=== PATIENT | male | born 1975 | race Caucasian/White ===

== ENCOUNTER 2021-02-26 15:43 | Emergency (ER) | payer SELFPAY ==
[2021-02-26 15:46] VITALS: BP 126/100; PULSE 81; RESP 14; TEMP 36.4; O2SAT 99
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
[2021-02-26] MEDS: SODIUM CHLORIDE 0.9% IV 2,000 ML 999 ML IV CONT (16:18)
[2021-02-26] MEDS: ONDANSETRON INJ 4 MG/2 ML VIAL IV PUSH (16:18)
[2021-02-26] MEDS: FAMOTIDINE 20 MG/2 ML VIAL IV PUSH (16:22)
[2021-02-26 16:29] LABS: Basophils Percent Auto 0.2 % (0.2-1.2); Eosinophils Percent Auto 0.1 % (0-4.4); Hematocrit 47.7 % (42.0-52.0); Hemoglobin 16.9 g/dL (14.0-18.0); Immature Granulocyte Absolute 0.03 K/mm3 (0.00-0.031); Immature Granulocyte Percent A 0.3 % (0-0.5); Lymphocytes Absolute Auto 0.93 K/mm3 (0.9-3.2); Lymphocytes Percent Auto 10.8 % (18.3-44.2); Mean Corpuscular HGB Conc 35.4 g/dl (32-36); Mean Corpuscular Hemoglobin 29.2 pg (26-34); Mean Corpuscular Volume 82.4 fl (80-100); Mean Platelet Volume 10.2 fl (7.4-10.4); Monocytes Absolute Auto 0.6 K/mm3 (0.1-0.6); Monocytes Percent Auto 7.1 % (2.6-8.5); Neutrophils Percent Auto 81.5 % (45.5-73.1); Platelet Count Result 182 k/mm3 (150-375); Red Blood Count 5.79 M/mm3 (4.6-6.20); Red Cell Distribution Width 12.9 % (11.5-14.5); White Blood Count 8.6 K/mm3 (4.5-10.0)
[2021-02-26 16:48] LABS: Alanine Aminotransferase 18 U/L (4-50); Albumin Level 4.6 g/dL (3.5-5.1); Alkaline Phosphatase 79 U/L (38-126); Anion Gap 13 mmol/L (8-16); Aspartate Amino Transferase 25 U/L (17-59); Bilirubin,Total 0.9 mg/dL (0.2-1.3); Blood Urea Nitrogen 18 mg/dL (9-20); Calcium 10.6 mg/dL (8.4-10.2); Carbon Dioxide 24 mmol/L (22-30); Chloride 94 mmol/L (98-107); Estimated CRCL calculation 95 ml/min; Estimated Glomerular Filt Rate > 60; Glucose 311 mg/dL (75-110); Lipase 91 U/L (23-300); Magnesium 1.4 mg/dL (1.6-2.3); Phosphorus 3.8 mg/dL (2.5-4.5); Potassium 4.3 mmol/L (3.4-5.0); Sodium 131 mmol/L (137-145)
[2021-02-26 16:52] LABS: Beta-Hydroxybutyrate/Acetoacetate 3.44 mmol/L (0.02-0.27)
[2021-02-26] MEDS: METOCLOPRAMIDE HCL INJ 10 MG/2 ML VIAL IV PUSH (17:20)
[2021-02-26] MEDS: SODIUM CHLORIDE 0.9% IV 1,000 ML 999 ML (17:52)
[2021-02-26 18:13] LABS: Add Urine Microscopic? YES; Appearance Urine Clear (Clear); Bilirubin Urine Negative (Negative); Blood Urine Negative (Negative); Color Urine Yellow (Yellow); Glucose Urine UA 3+ mg/dL (Negative); Ketones Urine 2+ mg/dL (Negative); Leukocyte Esterase Ur Negative LEU/UL (Negative); Nitrate Urine Negative (Negative); Protein Urine 1+ mg/dL (Negative); Specific Grav Ur 1.024 (1.001-1.035); Squamous Epithelial Cell Urine Rare /hpf (Few); Urobilinogen Urine Negative mg/dL (<2.0); WBC Urine 0-3 /hpf
[2021-02-26 18:48] LABS: Glucose Point of Care 254 mg/dl (65-105)
[2021-02-26 19:28] VITALS: BP 128/78; PULSE 85; RESP 18; O2SAT 100
== END 2021-02-26 19:29 | disposition home or self-care (01) ==
PROVIDERS: Emergency Provider Emergency Medicine; PCP Emergency Medicine
DX: K52.9 Noninfective gastroenteritis and colitis, unspecified (principal); E86.0 Dehydration; E11.9 Type 2 diabetes mellitus without complications; Z79.84 Long term (current) use of oral hypoglycemic drugs
CPT/HCPCS: 36415; 80053; 81001; 82010; 82948; 83690; 83735; 84100; 85025; 96361; 96374; 96375; 99284; J2405; J2765; J7030

== ENCOUNTER 2022-01-01 12:04 | Observation (INO) | payer BC, SELFPAY ==
[2022-01-01] VITALS (40 sets, daily range): BP systolic 114–160; BP diastolic 62–98; PULSE 48–90; RESP 12–30; TEMP 35.9–36.6; O2SAT 96–100
--- NOTE | ~2022-01-01 | NM_ITS ---
EXAM: NM gastric emptying study DATE: 01/02/2022 13:06 INDICATION: Dyspepsia. Nausea. Regurgitation. TECHNIQUE: A gastric emptying study was performed using the methodology of Bonita FULTON, et al. J Nucl Med 2007; 48:568-572. The patient was given a meal consisting of 2 scrambled eggs labeled with 0.972 mCi Tc-99m sulfur colloid, 2 slices of toast, two packages of jam, and approximately 120 mL of water . Simultaneous anterior and posterior 1-min images of the abdomen was obtained immediately following ingestion of the medial. The patient vomited 10 minutes later and subsequent imaging was unable to be obtained in the study was terminated. FINDINGS/IMPRESSION: Nondiagnostic study for gastric emptying due to patient vomiting with loss of the radiolabeled meal o ccurring 10 minutes following the beginning of the study. Reviewed, dictated and finalized at location A.
--- NOTE | ~2022-01-01 | XR_ITS ---
EXAMINATION: XR abdomen/kub 1V EXAM DATE: 01/01/2022 23:01 INDICATION: Abdominal pain, vomiting, constipation. TECHNIQUE: Frontal projection(s) of the abdomen for interpretation. Correlation is made to CT from . FINDINGS: Evidence of mild splenomegaly. There is expected amount of colonic stool and gas. No sma ll bowel dilation, nonobstructive bowel gas pattern. Phleboliths. The bones are unremarkable. IMPRESSION: Unremarkable abdomen x-ray exam. Reviewed, dictated and finalized at location G.
[2022-01-01 12:20] LABS: Glucose Point of Care 325 mg/dl (65-105)
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
--- NOTE | 2022-01-01 12:50 | PC.NURSE ---
Verified insulin orders with MARIA D Rodriguez. Blood sugar only 325. Per orders, given IVP insulin for BS >450. Per MARIA D Rodriguez given 8units Insulin IVP at this time.
[2022-01-01 12:51] LABS: Basophils Percent Auto 0.2 % (0.2-1.2); Eosinophils Percent Auto 0.1 % (0-4.4); Hematocrit 42.5 % (42.0-52.0); Hemoglobin 15.1 g/dL (14.0-18.0); Immature Granulocyte Absolute 0.04 K/mm3 (0.00-0.031); Immature Granulocyte Percent A 0.5 % (0-0.5); Lymphocytes Absolute Auto 0.88 K/mm3 (0.9-3.2); Lymphocytes Percent Auto 10.1 % (18.3-44.2); Mean Corpuscular HGB Conc 35.5 g/dl (32-36); Mean Corpuscular Hemoglobin 29.7 pg (26-34); Mean Corpuscular Volume 83.7 fl (80-100); Mean Platelet Volume 10.6 fl (7.4-10.4); Monocytes Absolute Auto 0.4 K/mm3 (0.1-0.6); Monocytes Percent Auto 4.2 % (2.6-8.5); Neutrophils Absolute Auto 7.4 K/mm3 (1.3-6.7); Neutrophils Percent Auto 84.9 % (45.5-73.1); Platelet Count Result 176 k/mm3 (150-375); Red Blood Count 5.08 M/mm3 (4.6-6.20); Red Cell Distribution Width 12.9 % (11.5-14.5); White Blood Count 8.7 K/mm3 (4.5-10.0)
[2022-01-01] MEDS: ONDANSETRON INJ 4 MG/2 ML VIAL IV PUSH ×2 (12:55→18:31)
[2022-01-01] MEDS: INSULIN HUMAN REGULAR (*BKC) 100 UNITS/ML 8 UNITS IV PUSH (12:55)
[2022-01-01] MEDS: SODIUM CHLORIDE 0.9% IV 1,000 ML 999 ML IV CONT ×3 (12:55→16:11)
[2022-01-01 13:00] LABS: Alanine Aminotransferase 31 U/L (4-50); Albumin Level 4.4 g/dL (3.5-5.1); Alkaline Phosphatase 72 U/L (38-126); Anion Gap 8 mmol/L (8-16); Aspartate Amino Transferase 22 U/L (17-59); Blood Urea Nitrogen 14 mg/dL (9-20); Calcium 9.6 mg/dL (8.4-10.2); Carbon Dioxide 26 mmol/L (22-30); Chloride 100 mmol/L (98-107); Estimated CRCL calculation 105 ml/min; Estimated Glomerular Filt Rate > 60; Glucose 323 mg/dL (65-110); Lipase 128 U/L (23-300); Potassium 3.7 mmol/L (3.4-5.0); Sodium 134 mmol/L (137-145)
[2022-01-01 13:15] LABS: Magnesium 1.5 mg/dL (1.6-2.3); Phosphorus 3.4 mg/dL (2.5-4.5)
[2022-01-01 13:22] LABS: Beta-Hydroxybutyrate/Acetoacetate 1.27 mmol/L (0.02-0.27)
[2022-01-01 13:37] LABS: Device ROOM AIR; Fractional Inspired Oxygen 21 %; HCO3 VBG 25.6 mEq/l (24.0-30.0); PCO2 VBG 43.1 mmHg (42.0-48.0); PO2 VBG 29.5 mmHg (35.0-45.0); pH VBG 7.392 (7.300-7.400)
[2022-01-01 13:42] LABS: Glucose Point of Care 224 mg/dl (65-105)
--- NOTE | 2022-01-01 14:39 | ECG_ITS ---
Measurements Intervals [place] Rate: 58 P: 69 MD: 130 QRS: 55 QRSD: 88 T: 57 QT: 390 QTc: 384 Interpretive Statements SINUS BRADYCARDIA OTHERWISE NORMAL ECG NO PREVIOUS ECG AVAILABLE FOR COMPARISON Electronically Signed On 01-01-2022 17:54:48 CDT by Bill Reina M.D.
[2022-01-01] MEDS: MAGNESIUM SULF 2 GM/WATER 50ML 2 GM/50 ML BAG IVPB (14:52)
[2022-01-01 16:10] LABS: Troponin I < 0.012 ng/mL (0.000-0.034)
[2022-01-01 16:43] LABS: Glucose Point of Care 256 mg/dl (65-105)
[2022-01-01 16:44] LABS: Add Urine Microscopic? YES; Appearance Urine Clear (Clear); Bacteria Urine Trace /hpf; Bilirubin Urine Negative (Negative); Blood Urine Negative (Negative); Color Urine Yellow (Yellow); Glucose Urine UA 3+ mg/dL (Negative); Ketones Urine 2+ mg/dL (Negative); Leukocyte Esterase Ur Negative LEU/UL (Negative); Mucus Urine Rare /lpf; Nitrate Urine Negative (Negative); Protein Urine Negative (Negative); RBC Urine 0-2 /hpf (0-2); Urobilinogen Urine Negative mg/dL (<2.0); WBC Urine 0-3 /hpf
[2022-01-01 16:50] LABS: Specific Grav Ur 1.035 (1.001-1.035)
--- NOTE | 2022-01-01 19:00 | PM.IMHP ---
H&P: HPI History of Present Illness Date/Time: 01/01/22 19:00 Chief Complaint: High glucose, nausea, vomiting. Narrative: This is a pleasant 46-year-old male with type 2 diabetes mellitus who presented to the emergency department for evaluation of high glucose, nausea, and vomiting. He was diagnosed with diabetes 4 to 5 years ago and he has lost about 100 pounds since that time. He has done well with metformin only however more recently his glucose has started to climb in the last few weeks. In addition to the hyperglycemia, he has been having sweats, most significant at night, frequent nausea, and vomiting. 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 He was able to be discharged home however he is just not felt well since that time. Last Thursday he followed up with his primary care physician, Dr. Otto, and he was started on 10 units glargine. Despite the addition of insulin, his glucose has continued to be in the 300s or more and he was told to increase his insulin to 20 units daily just today. The patient actually took 30 units today however his glucose continues to be in the upper 300s and he came in for evaluation. Once again he was aggressively hydrated and treated with IV insulin and his glucose has improved to 224 on last check. Unfortunately he continues to have pretty significant nausea and vomiting. With further questioning he endorses low sternum/epigastric burning discomfort that has been ongoing for quite some time and he has also noticed that his fluid seems to sit in his stomach causing him to regurgitate frequently. He has not had any diarrhea and in fact his bowels have not moved for several days. He denies documented fever, cold and flu symptoms (he believes he had COVID at the beginning of October though it was not confirmed), chest pain, pleuritic pain, shortness of breath, hematemesis, melena, hematochezia, and dysuria. No lymphadenopathy or history of malignancy. Review of Systems Review of Systems: Twelve systems were reviewed. He has occasional mild tingling in his toes but nothing significant. No retinopathy or nephropathy. He has occasional blurry vision with hyperglycemia. No significant polydipsia or polyuria. No sinus congestion, rhinorrhea, otalgia, or odynophagia. He denies rash in lesion. Except as documented, all other systems were reviewed and are negative. [facility] Past Medical History Medical History (Updated 01/01/22 @ 22:56 by Angeli Kent PA-C) Hypercholesterolemia Type 2 diabetes mellitus Surgical History Surgical History (Updated 01/01/22 @ 22:49 by Angeli Kent PA-C) No history of previous surgery Family History Family History Father Diabetes mellitus Congestive heart failure Mother Rheumatoid arthritis Thyroid disease Sibling Diabetes mellitus Social History Social History (Updated 01/01/22 @ 22:51 by Angeli Kent PA-C) Social History: Surrogate decision maker: Khloe Maxwell, sister. Code status: Full code. Smoking status: Former smoker Additional smoking assessment comments: The patient smoked remotely as a teen, quit in his 20s. Alcohol intake: never Alcohol use details: Very rare alcohol use, socially and in moderation. Substance use: never Additional living arrangements comments: The patient lives in [place]. 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 Spiritual care concerns: No Meds Home Medications and Allergies Home Medications Medication Instructions Recorded Confirmed Type insulin glargine-yfgn 10 unit SUBCUT DAILY 01/01/22 01/01/22 History [Semglee(insulin glarg-yfgn)Pen] lisinopril 2.5 mg PO DAILY 01/01/22 01/01/22 History metoclopramide HCl [Reglan] 10
[2022-01-01 19:13] LABS: Anion Gap 9 mmol/L (8-16); Blood Urea Nitrogen 14 mg/dL (9-20); Calcium 8.4 mg/dL (8.4-10.2); Carbon Dioxide 22 mmol/L (22-30); Chloride 105 mmol/L (98-107); Estimated CRCL calculation 136 ml/min; Estimated Glomerular Filt Rate > 60; Glucose 252 mg/dL (65-110); Potassium 3.8 mmol/L (3.4-5.0); Sodium 136 mmol/L (137-145)
[2022-01-01 19:49] LABS: SARS-CoV-2 RNA PCR Negative
[2022-01-01 22:15] LABS: Glucose Point of Care 224 mg/dl (65-105)
--- NOTE | 2022-01-01 22:49 | ADMGEN ---
This patient, Manuel Yun, was admitted to 3 [facility] Surg Room 320-01. Patient/family oriented to hospital policies and general routines including ID bracelet, bed and alarms, visiting hours, pain management, procedures, bathroom and other care routines, personal items, smoking policy, room service/diet, and visiting hours. Information on how to activate the Rapid Response Team has been discussed. Patient/Family are encouraged to report perceived risks to care and to ask questions if they do not understand what they are told or what they should do.
[2022-01-02] VITALS (10 sets, daily range): BP systolic 113–155; BP diastolic 63–76; PULSE 51–72; RESP 16–20; TEMP 36.2–36.7; O2SAT 98–100
[2022-01-02] MEDS: SODIUM CHLORIDE 0.9% IV 1,000 ML 100 ML IV CONT ×2 (00:30→13:25)
[2022-01-02 06:22] LABS: Hematocrit 36.6 % (42.0-52.0); Hemoglobin 12.7 g/dL (14.0-18.0); Mean Corpuscular HGB Conc 34.7 g/dl (32-36); Mean Corpuscular Hemoglobin 29.6 pg (26-34); Mean Corpuscular Volume 85.3 fl (80-100); Mean Platelet Volume 10.2 fl (7.4-10.4); Platelet Count Result 148 k/mm3 (150-375); Red Blood Count 4.29 M/mm3 (4.6-6.20); Red Cell Distribution Width 13.1 % (11.5-14.5); White Blood Count 7.9 K/mm3 (4.5-10.0)
[2022-01-02 06:35] LABS: Anion Gap 5 mmol/L (8-16); Blood Urea Nitrogen 13 mg/dL (9-20); Calcium 8.5 mg/dL (8.4-10.2); Carbon Dioxide 25 mmol/L (22-30); Chloride 106 mmol/L (98-107); Estimated CRCL calculation 119 ml/min; Estimated Glomerular Filt Rate > 60; Glucose 153 mg/dL (65-110); Lipase 53 U/L (23-300); Magnesium 1.7 mg/dL (1.6-2.3); Potassium 3.3 mmol/L (3.4-5.0); Sodium 136 mmol/L (137-145)
[2022-01-02 07:09] LABS: Hemoglobin A1C 9.3 % (<5.7)
[2022-01-02 07:41] LABS: Glucose Point of Care 175 mg/dl (65-105)
[2022-01-02] MEDS: METOCLOPRAMIDE HCL INJ 10 MG/2 ML VIAL IV PUSH ×3 (08:20→23:09)
[2022-01-02] MEDS: FAMOTIDINE 20 MG/2 ML VIAL IV PUSH ×2 (09:01→21:26)
[2022-01-02] MEDS: MAGNESIUM SULF 1 GM/D5W 100 ML 1 GM/100 ML BAG IVPB (10:00)
--- NOTE | 2022-01-02 11:28 | PC.NURSE ---
patient to nuc med per w/c
--- NOTE | 2022-01-02 13:13 | WPDGICN ---
Assessment and Plan Assessment and plan (1) Intractable nausea and vomiting: Code(s): R11.2 - Nausea with vomiting, unspecified Status: Acute Assessment and Plan: probably this could be from uncontrolled DM, dysmotility and also marijuana use (history suggestive of cyclic vomiting but lately with persistent symptoms) therefore will proceed with EGD tomorrow to assess if pud, esophagitis, h pylori, etc he could not complete gastric emptying study that was ordered by primary team, this can be done as outpatient when nausea is under control. he also will need to stop using marijuana as this can be a contributing factor (2) Type 2 diabetes mellitus with hyperglycemia: Code(s): E11.65 - Type 2 diabetes mellitus with hyperglycemia Status: Acute Assessment and Plan: by primary team (3) Dyspepsia: Code(s): R10.13 - Epigastric pain Status: Acute Assessment and Plan: on famotidine for now egd tomorrow (4) Marijuana smoker: Code(s): F12.90 - Cannabis use, unspecified, uncomplicated Status: Acute GI Consult Note Consult date/time: 01/02/22 13:13 Reason for consult: nausea, vomiting, uncontrolled DM HPI: Manuel Yun is a 46 year old male with uncontrolled DM for almost 5 years, intermittent nausea for last several months that initially will come in cycles but last few weeks persistent nausea and more vomiting. He used to live in [place], [place] and he was not good at taking his medications because lack of insurance, finally moved up here and just recently started on insulin and other medications after he got insurance. He says that has been admitted at least two times for DKA last year. Also smokes marijuana for years. He says that whenever gets sick at home will take hot showers. He is here with intractable nausea and vomiting again. He has not had gastric emptying study or EGD. Hb a1c 9, glucose 320, liver enzymes and lipase normal. Review of Systems Constitutional: Constitutional: Denies chills Eyes: Eyes: Denies blurry vision ENT: Reports Normal hearing present Cardiovascular: Cardiovascular: Denies chest pain Respiratory: Respiratory: Denies cough Gastrointestinal: Gastrointestinal: Reports nausea and Reports vomiting Genitourinary: Genitourinary: Denies dysuria Musculoskeletal: Musculoskeletal: Denies neck pain Integumentary/Breasts: Skin/Breast: Denies dry skin Neurologic: Denies headache(s) Psychiatric: Psychiatric: Denies behavioral changes PMF Past Medical History Medical History (Updated 01/02/22 @ 13:19 by Bill Campos MD) Hypercholesterolemia Marijuana smoker Type 2 diabetes mellitus Surgical History Surgical History (Updated 01/01/22 @ 22:49 by Angeli Kent PA-C) No history of previous surgery Family History Family History Father Diabetes mellitus Congestive heart failure Mother Rheumatoid arthritis Thyroid disease Sibling Diabetes mellitus Social History Social History (Updated 01/01/22 @ 22:51 by Angeli Kent PA-C) Social History: Surrogate decision maker: Khloe Maxwell, sister. Code status: Full code. Smoking status: Former smoker Additional smoking assessment comments: The patient smoked remotely as a teen, quit in his 20s. Alcohol intake: never Alcohol use details: Very rare alcohol use, socially and in moderation. Substance use: never Additional living arrangements comments: The patient lives in [place]. 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 Spiritual care concerns: No Meds Home Medications and Allergies Home Medications Medication Instructions Recorded Confirmed Type insulin glargine-yfgn 10 unit SUBCUT DAILY 01/01/22 01/01/22 History [Semglee(insulin glarg-yfgn)Pen] lisinopril 2.5 mg PO DAILY 01/01/22 01/01/22 History
[2022-01-02] MEDS: INSULIN ASPART (*BKC) 100 UNITS/ML SUB-Q (13:26)
[2022-01-02 13:33] LABS: Glucose Point of Care 238 mg/dl (65-105)
[2022-01-02] MEDS: KCL 20 MEQ/SW 100 ML 100 ML 50 MEQ IVPB (15:02)
--- NOTE | 2022-01-02 15:57 | PM.IMPN ---
Progress Note: A&P Assessment and Plan (1) Type 2 diabetes mellitus with hyperglycemia: Code(s): E11.65 - Type 2 diabetes mellitus with hyperglycemia Status: Acute Assessment and Plan: A1c is 9.3 Blood sugars reviewed and have been elevated, ranging from 175-240 No evidence of DKA. Anion gap is within normal He recently had his long-acting insulin increased per his PCP Continue home Lantus 20 units daily Continue Accu-Cheks, moderate dose sliding scale insulin, and hypoglycemic protocol Consult to dietitian. Appreciate recommendations (2) Intractable nausea and vomiting: Code(s): R11.2 - Nausea with vomiting, unspecified Status: Acute Assessment and Plan: Persistent nausea and vomiting, unable to tolerate solid foods Clinical picture seems consistent with gastroparesis secondary to diabetes Differential diagnosis includes click vomiting syndrome secondary to marijuana use Unable to tolerate gastric emptying study today Proceed with EGD tomorrow Appreciate gastroenterology consultation Reduced back to clear liquid diet Continue with gentle IV fluids until tolerating p.o. intake (3) Dyspepsia: Code(s): R10.13 - Epigastric pain Status: Acute Assessment and Plan: Asymptomatic at this time Continue Pepcid b.i.d. Appreciate GI consult Plan for EGD tomorrow (4) Electrolyte abnormality: Code(s): E87.8 - Other disorders of electrolyte and fluid balance, not elsewhere classified Status: Acute Assessment and Plan: Potassium 3.3 today. Administer 20 mEq IV KCl Mag 1.7. Give 1 g IV mag sulfate Likely due to decreased PO intake. Monitor BMP and mag Subjective Date/time seen: 01/02/22 15:57 Interval history: Date of admission: 01/02/2022 Manuel Yun is a 46-year-old male with a history of type 2 diabetes mellitus, recently requiring hospitalization for DKA 1 month prior, as well as hyperlipidemia and chronic marijuana use who is seen in follow-up for nausea and vomiting. The patient states he is feeling rather poorly still. He has diffuse abdominal aching. He attempted to have gastric emptying study today but did not tolerate this and had nausea and vomiting, therefore this test was not able to be completed. The patient had eggs for breakfast this morning and he reports he threw up aches this afternoon mixed with stomach acid. He has occasional acid reflux symptoms but at this time denies any issues. He denies fevers, chills, dizziness, lightheadedness, weakness, shortness of breath, cough, chest pain. The patient informs me that he was hospitalized in [place] 1 month ago for DKA. He states that he has been coming to this ER many times and has never been diagnosed and therefore he is disappointed that he had to be out of state to receive this diagnosis. He feels that he was admitted this time because he now has insurance and the past has not been admitted due to lack of insurance. He also asked about dietary recommendations. He informs me that he has lost about 130 lbs over the past 1 year by following a ketogenic diet. Review of Systems Review of Systems: All systems reviewed & are unremarkable except as noted in HPI and below Exam Narrative: General: Well-nourished, well-appearing 46 year-old male, sitting up in bed, comfortable, NARD Neuro: awake, alert and oriented x4, speech clear, no focal neuro deficits noted HEENMT: normocephalic, atraumatic, EOMI, sclerae anicteric, moist oral mucosa Respiratory: clear to auscultation bilaterally, nonlabored breathing Cardio: regular rate, regular rhythm with S1-S2 Abdomen: nondistended, normoactive bowel sounds, soft, nontender to palpation Extremities: no edema, erythema, or tenderness to palpation, DP pulses 2+ bilaterally Skin: no rashes or lesions, warm and dry Psych: appropriate mood and affect, judgment and insight intact Objective Data Vital Signs Vital
[2022-01-02 16:20] LABS: Glucose Point of Care 178 mg/dl (65-105)
[2022-01-02 23:31] LABS: Glucose Point of Care 175 mg/dl (65-105)
[2022-01-03] VITALS (8 sets, daily range): BP systolic 131–176; BP diastolic 73–89; PULSE 53–94; RESP 16–25; TEMP 36.3–36.9; O2SAT 93–100
--- NOTE | 2022-01-03 00:31 | PC.NURSE ---
01/03/22 0031 pt spends most of the night in the restroom. iv fluids not infusing adequately due to pt being in restroom. pt c/o pain from having emesis but still have not given pain med due to pt in the restroom at this time. asked pt if he was okay pt resp pt aonded saying i'll be out in a minute .pt aware he is npo for procedure in the am.
[2022-01-03] MEDS: KETOROLAC 30 MG/ML VIAL (*BKC) IV PUSH (01:14)
[2022-01-03 06:25] LABS: Anion Gap 11 mmol/L (8-16); Blood Urea Nitrogen 14 mg/dL (9-20); Calcium 8.4 mg/dL (8.4-10.2); Carbon Dioxide 19 mmol/L (22-30); Chloride 103 mmol/L (98-107); Estimated CRCL calculation 119 ml/min; Estimated Glomerular Filt Rate > 60; Glucose 223 mg/dL (65-110); Magnesium 1.4 mg/dL (1.6-2.3); Potassium 3.3 mmol/L (3.4-5.0); Sodium 133 mmol/L (137-145)
[2022-01-03 06:40] LABS: Hematocrit 34.5 % (42.0-52.0); Hemoglobin 12.3 g/dL (14.0-18.0); Mean Corpuscular HGB Conc 35.7 g/dl (32-36); Mean Corpuscular Hemoglobin 29.7 pg (26-34); Mean Corpuscular Volume 83.3 fl (80-100); Mean Platelet Volume 10.8 fl (7.4-10.4); Platelet Count Result 149 k/mm3 (150-375); Red Blood Count 4.14 M/mm3 (4.6-6.20); Red Cell Distribution Width 12.9 % (11.5-14.5); White Blood Count 6.8 K/mm3 (4.5-10.0)
[2022-01-03] MEDS: SODIUM CHLORIDE 0.9% IV 1,000 ML 85 ML IV CONT (07:55)
[2022-01-03] MEDS: POTASSIUM CHLORIDE INJ 40 MEQ in SODIUM CHLORIDE 0.9% IV 500 ML 130 MEQ IVPB (08:14)
[2022-01-03] MEDS: MAGNESIUM SULF 2 GM/WATER 50ML 2 GM/50 ML BAG IVPB (08:14)
[2022-01-03] MEDS: METOCLOPRAMIDE HCL INJ 10 MG/2 ML VIAL IV PUSH (08:15)
[2022-01-03] MEDS: FAMOTIDINE 20 MG/2 ML VIAL IV PUSH ×2 (08:15→20:37)
[2022-01-03 08:23] LABS: Glucose Point of Care 247 mg/dl (65-105)
[2022-01-03] MEDS: INSULIN GLARGINE (*BKC) 100 UNITS/ML 20 UNITS SUB-Q (08:32)
[2022-01-03 11:53] LABS: Glucose Point of Care 233 mg/dl (65-105)
[2022-01-03] MEDS: LACTATED RINGERS 1,000 ML 150 ML IV CONT (13:05)
--- NOTE | 2022-01-03 13:09 | WPDANESEPPF ---
Anes - Initial Pre Proc Eval Procedure: Operation Date: 01/03/22 14:30 Proposed Procedures p Esophagogastroduodenoscopy - Bill Campos MD Date/Time: 01/03/22 13:09 Surgeon: DEBRA Canales Pre Op Diagnosis: Hyperglycemia/nausea and vomiting Patient Data Age: 46 Gender: M Height: 1.78 m Weight: 84.2 kg Last Vital Signs Temp 36.3 C L 01/03/22 12:00 Pulse 62 01/03/22 12:00 Resp 16 01/03/22 12:00 BP 134/78 01/03/22 12:00 Pulse Ox 99 01/03/22 12:00 Allergies Allergy/AdvReac Type Severity Reaction Status Date / Time Opioids - Morphine Analogues Allergy Unknown PT WAS Verified 01/03/22 13:02 ADDICTED TO OPIATES AND HAS BEEN CLEAN Opioids-Methadone and Related Allergy Unknown PT WAS Verified 01/03/22 13:02 ADDICTED TO OPIATES AND HAS BEEN CLEAN Home Medications Medication Instructions Recorded Confirmed Type insulin glargine-yfgn 10 unit SUBCUT DAILY 01/01/22 01/03/22 History [Semglee(insulin glarg-yfgn)Pen] lisinopril 2.5 mg PO DAILY 01/01/22 01/03/22 History metoclopramide HCl [Reglan] 10 mg PO Q6H 01/01/22 01/03/22 History pantoprazole 40 mg PO DAILY 01/01/22 01/03/22 History rosuvastatin 10 mg PO DAILY 01/01/22 01/03/22 History Laboratory Tests 01/02/22 01/02/22 01/02/22 13:24 16:17 23:05 WBC RBC Hgb Hct MCV MCH MCHC RDW Plt Count MPV Sodium Potassium Chloride Carbon Dioxide Anion Gap BUN Creatinine Estim Creat Clear Calc Estimated GFR Glucose POC Capillary Glucose 238 mg/dl H mg/dl 178 mg/dl H mg/dl 175 mg/dl H mg/dl (65-105) (65-105) (65-105) Calcium Magnesium 01/03/22 01/03/22 01/03/22 05:44 05:44 08:19 WBC 6.8 K/mm3 K/mm3 (4.5-10.0) RBC 4.14 M/mm3 L M/mm3 (4.6-6.20) Hgb 12.3 g/dL L g/dL (14.0-18.0) Hct 34.5 % L % (42.0-52.0) MCV 83.3 fl fl (80-100) MCH 29.7 pg pg (26-34) MCHC 35.7 g/dl g/dl (32-36) RDW 12.9 % % (11.5-14.5) Plt Count 149 k/mm3 L k/mm3 (150-375) MPV 10.8 fl H fl (7.4-10.4) Sodium 133 mmol/L L mmol/L (137-145) Potassium 3.3 mmol/L L mmol/L (3.4-5.0) Chloride 103 mmol/L mmol/L (98-107) Carbon Dioxide 19 mmol/L L mmol/L (22-30) Anion Gap 11 mmol/L mmol/L (8-16) BUN 14 mg/dL mg/dL (9-20) Creatinine 0.70 mg/dL mg/dL (0.7-1.3) Estim Creat Clear Calc 119 ml/min ml/min Estimated GFR > 60 (59 - ) Glucose 223 mg/dL H mg/dL (65-110) POC Capillary Glucose 247 mg/dl H mg/dl (65-105) Calcium 8.4 mg/dL mg/dL (8.4-10.2) Magnesium 1.4 mg/dL L mg/dL (1.6-2.3) 01/03/22 11:50 WBC RBC Hgb Hct MCV MCH MCHC RDW Plt Count MPV Sodium Potassium Chloride Carbon Dioxide Anion Gap BUN Creatinine Estim Creat Clear Calc Estimated GFR Glucose POC Capillary Glucose 233 mg/dl H mg/dl (65-105) Calcium Magnesium Patient hx anesthesia problems: none Family hx anesthesia problems: none Results Review: All pre-operative results and documents have been reviewed as part of the pre-operative evaluation. [facility] Past Medical History Medical History (Updated 01/02/22 @ 16:06 by Yola Betancourt PA-C) Hypercholesterolemia Marijuana smoker Type 2 diabetes mellitus Surgical History Surgical History (Updated 01/01/22 @ 22:49 by Angeli Kent PA-C) No history of previous surgery Family History Fami
--- NOTE | 2022-01-03 13:18 | P.PNIM_ITS ---
Progress Note: A&P Assessment and Plan (1) Type 2 diabetes mellitus with hyperglycemia: Qualifiers: Diabetes mellitus mcfp insulin use: with mcfp use Qualified Code(s): E11.65 - Type 2 diabetes mellitus with hyperglycemia; Z79.4 - skilled nursing (current) use of insulin Code(s): E11.65 - Type 2 diabetes mellitus with hyperglycemia Status: Acute Assessment and Plan: A1c is 9.3 * Blood sugars reviewed and have been elevated, ranging from 175-240 * No evidence of DKA. Anion gap is within normal * He recently had his long-acting insulin increased per his PCP * Continue home Lantus 20 units daily * Continue Accu-Cheks, moderate dose sliding scale insulin, and hypoglycemic protocol * Consult to dietitian. Appreciate recommendations * Fasting glucose this AM was 233. Will increase lantus to 25 units QHS. (2) Intractable nausea and vomiting: Code(s): R11.2 - Nausea with vomiting, unspecified Status: Acute Assessment and Plan: Persistent nausea and vomiting, unable to tolerate solid foods * Clinical picture seems consistent with gastroparesis secondary to diabetes * Differential diagnosis includes cyclic vomiting syndrome secondary to m arijuana use * Unable to tolerate gastric emptying study today * Proceed with EGD tomorrow * Reduced back to clear liquid diet * Continue with gentle IV fluids until tolerating p.o. intake (3) Dyspepsia: Code(s): R10.13 - Epigastric pain Status: Acute Assessment and Plan: Asymptomatic at this time * Continue Pepcid b.i.d. * Appreciate GI consult * EGD today (4) Electrolyte abnormality: Code(s): E87.8 - Other disorders of electrolyte and fluid balance, not elsewhere classified Status: Acute Assessment and Plan: * Replace Mag and Potassium today. * Recheck labs in AM. Time Spent With Patient Time with patient: 15 - 25 minutes Subjective Date/time seen: 01/03/22 0930 This pt. was examined at the bedside this morning in interval assessment. He appears tired. He remains nauseated at this time, but no further vomiting. He is going to have an EGD today. No CP, Dyspnea, Urological complaints. Review of Systems Review of Systems: A full 12 point ROS was performed and is otherwise negative with exception of what is noted in HPI. All systems reviewed & are unremarkable except as noted in HPI and below Exam Narrative: General: Well-nourished, well-appearing 46 year-old male, sitting up in bed, comfortable, appears tired. Neuro: awake, alert and oriented x4, speech clear, no focal neuro deficits noted HEENMT: normocephalic, atraumatic, EOMI, sclerae anicteric, moist oral mucosa Respiratory: clear to auscultation bilaterally, nonlabored breathing Cardio: regular rate, regular rhythm with S1-S2 Abdomen: nondistended, normoactive bowel sounds, soft, nontender to palpation Extremities: no edema, erythema, or tenderness to palpation, DP pulses 2+ bilaterally Skin: no rashes or lesions, warm and dry Psych: appropriate mood and affect, judgment and insight intact Objective Data Vital Signs Vital Signs: Vital Signs - 24 hr 01/02/22 15:01 01/02/22 17:45 01/02/22 20:00 Temperature 97.3 F L 97.6 F 98.1 F Pulse Rate 58 L 59 L 56 L Respiratory Rate 18 20 18 Blood Pressure 138/70 139/70 130/74 Pulse Oximetry 100 100 99 01/02/22 21:26 01/02/22 23:48 01/03/22 08:00
--- NOTE | 2022-01-03 13:18 | PM.IMPN ---
Progress Note: A&P Assessment and Plan (1) Type 2 diabetes mellitus with hyperglycemia: Qualifiers: Diabetes mellitus buttermaker insulin use: with buttermaker use Qualified Code(s): E11.65 - Type 2 diabetes mellitus with hyperglycemia; Z79.4 - nursing home (current) use of insulin Code(s): E11.65 - Type 2 diabetes mellitus with hyperglycemia Status: Acute Assessment and Plan: A1c is 9.3 Blood sugars reviewed and have been elevated, ranging from 175-240 No evidence of DKA. Anion gap is within normal He recently had his long-acting insulin increased per his PCP Continue home Lantus 20 units daily Continue Accu-Cheks, moderate dose sliding scale insulin, and hypoglycemic protocol Consult to dietitian. Appreciate recommendations Fasting glucose this AM was 233. Will increase lantus to 25 units QHS. (2) Intractable nausea and vomiting: Code(s): R11.2 - Nausea with vomiting, unspecified Status: Acute Assessment and Plan: Persistent nausea and vomiting, unable to tolerate solid foods Clinical picture seems consistent with gastroparesis secondary to diabetes Differential diagnosis includes cyclic vomiting syndrome secondary to marijuana use Unable to tolerate gastric emptying study today Proceed with EGD tomorrow Reduced back to clear liquid diet Continue with gentle IV fluids until tolerating p.o. intake (3) Dyspepsia: Code(s): R10.13 - Epigastric pain Status: Acute Assessment and Plan: Asymptomatic at this time Continue Pepcid b.i.d. Appreciate GI consult EGD today (4) Electrolyte abnormality: Code(s): E87.8 - Other disorders of electrolyte and fluid balance, not elsewhere classified Status: Acute Assessment and Plan: Replace Mag and Potassium today. Recheck labs in AM. Time Spent With Patient Time with patient: 15 - 25 minutes Subjective Date/time seen: 01/03/2230 This pt. was examined at the bedside this morning in interval assessment. He appears tired. He remains nauseated at this time, but no further vomiting. He is going to have an EGD today. No CP, Dyspnea, Urological complaints. Review of Systems Review of Systems: A full 12 point ROS was performed and is otherwise negative with exception of what is noted in HPI. All systems reviewed & are unremarkable except as noted in HPI and below Exam Narrative: General: Well-nourished, well-appearing 46 year-old male, sitting up in bed, comfortable, appears tired. Neuro: awake, alert and oriented x4, speech clear, no focal neuro deficits noted HEENMT: normocephalic, atraumatic, EOMI, sclerae anicteric, moist oral mucosa Respiratory: clear to auscultation bilaterally, nonlabored breathing Cardio: regular rate, regular rhythm with S1-S2 Abdomen: nondistended, normoactive bowel sounds, soft, nontender to palpation Extremities: no edema, erythema, or tenderness to palpation, DP pulses 2+ bilaterally Skin: no rashes or lesions, warm and dry Psych: appropriate mood and affect, judgment and insight intact Objective Data Vital Signs Vital Signs: Vital Signs - 24 hr 01/02/22 15:01 01/02/22 17:45 01/02/22 20:00 Temperature 97.3 F L 97.6 F 98.1 F Pulse Rate 58 L 59 L 56 L Respiratory Rate 18 20 18 Blood Pressure 138/70 139/70 130/74 Pulse Oximetry 100 100 99 01/02/22 21:26 01/02/22 23:48 01/03/22 08:00 Temperature 97.9 F 97.5 F L Pulse Rate 52 L 94 Respiratory Rate 18 18 Blood Pressure 155/76 H 163/86 H Pulse Oximetry 99 100 99 01/03/22 12:00 Temperature 97.4 F L Pulse Rate 62 Respiratory Rate 16 Blood Pressure 134/78 Pulse Oximetry 99 Intake/Output Intake/Output: Intake & Output 12/31/21 01/01/22 01/02/22 01/03/22 23:59 23:59 23:59 23:59 Intake Total 3050 2210 1570 Balance 3050 2210 1570 Meds/Results Medications: Active Medications Generic Name Dose Route Start Last Admin Trade Name Freq PRN Reason Stop Dose Admin
[2022-01-03] MEDS: ONDANSETRON INJ 4 MG/2 ML VIAL IV PUSH ×2 (14:20→20:36)
[2022-01-03 16:50] LABS: Glucose Point of Care 201 mg/dl (65-105)
[2022-01-03] MEDS: INSULIN ASPART (*BKC) 100 UNITS/ML SUB-Q (17:00)
--- NOTE | 2022-01-03 21:05 | PCRCNOTE ---
Patient refusing Apnea Link / sleep study at this time. Patient would like to speak to the ordering provider to determine indication for ordering.
[2022-01-03 21:31] LABS: Glucose Point of Care 126 mg/dl (65-105)
[2022-01-04] MEDS: SODIUM CHLORIDE 0.9% IV 1,000 ML 85 ML IV CONT (00:08)
[2022-01-04 06:00] VITALS: BP 139/85; PULSE 61; RESP 16; TEMP 36.8; O2SAT 100
[2022-01-04 07:59] LABS: Glucose Point of Care 114 mg/dl (65-105)
[2022-01-04] MEDS: ROSUVASTATIN 10 MG TABLET PO (08:10)
[2022-01-04] MEDS: FAMOTIDINE 20 MG/2 ML VIAL IV PUSH (08:10)
[2022-01-04] MEDS: lisinopriL 2.5 MG TABLET PO (08:11)
[2022-01-04 09:01] LABS: Basophils Percent Auto 0.7 % (0.2-1.2); Eosinophils Percent Auto 0.2 % (0-4.4); Hemoglobin 13.4 g/dL (14.0-18.0); Immature Granulocyte Absolute 0.02 K/mm3 (0.00-0.031); Immature Granulocyte Percent A 0.3 % (0-0.5); Immature Platelet Fraction Pct 4.2 % (0.9-11.2); Lymphocytes Absolute Auto 1.21 K/mm3 (0.9-3.2); Lymphocytes Percent Auto 20.7 % (18.3-44.2); Mean Corpuscular HGB Conc 35.3 g/dl (32-36); Mean Corpuscular Hemoglobin 30.2 pg (26-34); Mean Corpuscular Volume 85.6 fl (80-100); Mean Platelet Volume 10.3 fl (7.4-10.4); Monocytes Absolute Auto 0.5 K/mm3 (0.1-0.6); Monocytes Percent Auto 9.1 % (2.6-8.5); Platelet Count Result 149 k/mm3 (150-375); Red Blood Count 4.44 M/mm3 (4.6-6.20); Red Cell Distribution Width 13.2 % (11.5-14.5); White Blood Count 5.8 K/mm3 (4.5-10.0)
[2022-01-04 09:05] LABS: Alanine Aminotransferase 43 U/L (4-50); Albumin Level 3.6 g/dL (3.5-5.1); Alkaline Phosphatase 56 U/L (38-126); Anion Gap 7 mmol/L (8-16); Aspartate Amino Transferase 38 U/L (17-59); Bilirubin,Total 1.3 mg/dL (0.2-1.3); Blood Urea Nitrogen 11 mg/dL (9-20); Calcium 8.4 mg/dL (8.4-10.2); Carbon Dioxide 25 mmol/L (22-30); Chloride 103 mmol/L (98-107); Estimated CRCL calculation 119 ml/min; Estimated Glomerular Filt Rate > 60; Glucose 113 mg/dL (65-110); Magnesium 1.5 mg/dL (1.6-2.3); Potassium 3.3 mmol/L (3.4-5.0); Sodium 135 mmol/L (137-145)
[2022-01-04] MEDS: POTASSIUM CHLORIDE 20 MEQ TABLET 40 MEQ PO (09:33)
[2022-01-04] MEDS: POTASSIUM CHLORIDE 20 MEQ TABLET PO (09:33)
[2022-01-04] MEDS: ONDANSETRON INJ 4 MG/2 ML VIAL IV PUSH (09:35)
[2022-01-04] MEDS: MAGNESIUM OXIDE 400 MG TABLET PO (09:36)
--- NOTE | 2022-01-04 11:42 | PM.DS ---
DS: Admitting Diagnosis Discharge Date 01/04/2022 Admitting Diagnosis 1) Type 2 DM with Hyperglycemia 2) Intractable N/V 3) Dyspepsia 4) Hypomagnesemia DS: Discharge Diagnosis Discharge Diagnosis (1) Type 2 diabetes mellitus with hyperglycemia: Qualifiers: Diabetes mellitus long term care administrator insulin use: with long term care administrator use Qualified Code(s): E11.65 - Type 2 diabetes mellitus with hyperglycemia; Z79.4 - manager terminal (current) use of insulin Code(s): E11.65 - Type 2 diabetes mellitus with hyperglycemia Status: Acute Assessment and Plan: A1c is 9.3 Blood sugars reviewed and have been elevated, ranging from 175-240 No evidence of DKA. Anion gap is within normal He recently had his long-acting insulin increased per his PCP Continue home Lantus 20 units daily Continue Accu-Cheks, moderate dose sliding scale insulin, and hypoglycemic protocol Consult to dietitian. Appreciate recommendations Fasting glucose this AM was 233. Will increase lantus to 25 units QHS. - 01/04/22, date of discharge - Pt. stable with a fasting glucose this AM of 113. We will have him continue his home regimen of insulin and diabetes management with follow up as an outpatient with his PCP while continuing a diabetic/soft diet. (2) Intractable nausea and vomiting: Code(s): R11.2 - Nausea with vomiting, unspecified Status: Acute Assessment and Plan: Persistent nausea and vomiting, unable to tolerate solid foods Clinical picture seems consistent with gastroparesis secondary to diabetes Differential diagnosis includes cyclic vomiting syndrome secondary to marijuana use Unable to tolerate gastric emptying study today Proceed with EGD tomorrow Reduced back to clear liquid diet Continue with gentle IV fluids until tolerating p.o. intake - 01/04/22, date of discharge - This is now resolved. He has been able to tolerate oral intake without difficulty at this time. He had an EGD yesterday that was essentially negative and he is safe for discharge at this time with close GI follow up to perform gastric emptying study to evaluate for gastroparesis secondary to his DM. We recommend continuing his Metoclopromide, Zofran, carafate and his PPI coverage. Will have him see GI, Dr. Joseph as an outpatient. I discussed with the patient the importance of also stopping his smoking of Marijuana as it can cause Cyclic Vomiting Syndrome that is refractory to a lot of treatment. The pt verbalized all understanding. (3) Dyspepsia: Code(s): R10.13 - Epigastric pain Status: Acute Assessment and Plan: Asymptomatic at this time Continue Pepcid b.i.d. Appreciate GI consult EGD today - 01/04/22, date of discharge - Stable and asymptomatic. EGD was negative for any acute findings. He will continue PPI therapy as an outpatient. He was educated on eating a soft, bland, not spicy or hot diet and he verbalizes understanding. (4) Electrolyte abnormality: Code(s): E87.8 - Other disorders of electrolyte and fluid balance, not elsewhere classified Status: Acute Assessment and Plan: Replace Mag and Potassium today. Recheck labs in AM. - 01/04/22, date of discharge - po Mag oxide 400 mg and po Potassium 60 mEq ordered as pt. was slightly low on both his magnesium and potassium, but not significant enough to warrant keeping him hospitalized as he has improved, or giving IV supplementation. Will defer to PCP to re-evaluate. DS: Summary Hospital Course Reason for hospitalization: Intractable Nausea and Vomiting Hospital Course: This very pleasant 46 year old male patient with history of Type 2 DM, HLD and HTN as well as chronic Marijuana use presented to the ER with complaints of having N/V that will not resolve. He stated his glucose had been running high as well and as a result. He was admitted to the hospital for GI evaluation as the concern was for potential gastroparesis and he was unable to do the outpatient shaunna
[2022-01-04 11:57] LABS: Glucose Point of Care 131 mg/dl (65-105)
== END 2022-01-04 12:25 | disposition home or self-care (01) ==
LOC: ANHED 19:47 → ANH3MEDSUR 20:32
PROVIDERS: Emergency Medicine; Internal Medicine Gastroenterology; Physician Assistant; Admitting Provider Internal Medicine; Emergency Provider Nurse Practitioner Family; PCP Emergency Medicine; Visit Provider Nurse Practitioner Adult Health
PROC: 0DJ08ZZ Inspection of Upper Intestinal Tract, Via Natural or Artificial Opening Endoscopic (ICD-10-PCS; CPT 43235; principal; 2022-01-03 14:30)
DX: E11.65 Type 2 diabetes mellitus with hyperglycemia (principal); R11.2 Nausea with vomiting, unspecified; R10.13 Epigastric pain; E83.42 Hypomagnesemia; E78.00 Pure hypercholesterolemia, unspecified; E87.8 Other disorders of electrolyte and fluid balance, not elsewhere classified; F12.90 Cannabis use, unspecified, uncomplicated; Z79.4 Long term (current) use of insulin; Z20.822 Contact with and (suspected) exposure to COVID-19
CPT/HCPCS: 43239; 36415; 74018; 78264; 80048; 80053; 81001; 82010; 82803; 82948; 83036; 83690; 83735; 84100; 84443; 84484; 85025; 85027; 85055; 88305; 93005; 96361; 96365; 96366; 96367; 96375; 96376; 99285; A9270; A9541; C9803; G0378; J1815; J1885; J2405; J2704; J2765; J3475; J3480; J7030; J7040; J7120; U0003; U0005

== ENCOUNTER 2022-05-26 09:15 | Outpatient (RCR) | payer BC, SELFPAY | END 2022-08-11 08:08 | disposition home or self-care (01) | LOC: ANHDMC 09:15 | PROVIDERS: PCP Emergency Medicine; Visit Provider Emergency Medicine | DX: E11.9 Type 2 diabetes mellitus without complications (principal); Z71.89 Other specified counseling | CPT/HCPCS: G0108 ==

== ENCOUNTER 2022-06-18 07:41 | Emergency (ER) | payer BC, SELFPAY ==
[2022-06-18] VITALS (21 sets, daily range): BP systolic 112–152; BP diastolic 69–85; PULSE 50–93; RESP 15–30; TEMP 36.9; O2SAT 98–100
[2022-06-18 08:33] LABS: Appearance Urine Clear (Clear); Bilirubin Urine 1+ (Negative); Blood Urine Negative (Negative); Color Urine Amber (Yellow); Glucose Urine UA Negative (Negative); Ketones Urine 4+ mg/dL (Negative); Leukocyte Esterase Ur Negative LEU/UL (Negative); Nitrate Urine Negative (Negative); Protein Urine 1+ mg/dL (Negative); Specific Grav Ur >= 1.030 (1.001-1.035); Urobilinogen Urine 0.2 mg/dL (<2.0); pH Urine 5.5 (5.0-9.0)
--- NOTE | 2022-06-18 08:40 | ED.GENADULT ---
HPI - General Adult General Chief complaint: Nausea/Vomiting/Diarrhea Stated complaint: vomiting x36 hours Time Seen by Provider: 06/18/22 07:47 History of Present Illness HPI narrative: 46-year-old male with history of insulin-dependent type 2 diabetes and history of gastroparesis presenting the emergency department for evaluation of nausea vomiting for the past 48 hours. Patient states this is a recurrent issue and happens approximately once a month. Patient states symptoms usually last a few days. Patient states he often does have to present to the emergency department for treatment. Patient reports he does have follow-up with GI, Dr. Jake Mock scheduled tomorrow. Patient describes some upper abdominal pain but denies any lower abdominal pain. Patient felt that his pain was secondary to the nausea and vomiting. Patient denies any other complaints at this time. Patient states he has been taking his medications as directed but did not take his short acting insulin this morning Related Data Home Medications Medication Instructions Recorded Confirmed lisinopril 2.5 mg tablet 2.5 mg PO DAILY 01/01/22 01/03/22 metoclopramide HCl 10 mg tablet 10 mg PO Q6H 01/01/22 01/03/22 (Reglan) pantoprazole 40 mg tablet,delayed 40 mg PO DAILY 01/01/22 01/03/22 release rosuvastatin 10 mg tablet 10 mg PO DAILY 01/01/22 01/03/22 Allergies Allergy/AdvReac Type Severity Reaction Status Date / Time Opioids - Morphine Analogues Allergy Unknown PT WAS Verified 01/03/22 13:02 ADDICTED TO OPIATES AND HAS BEEN CLEAN Opioids-Methadone and Related Allergy Unknown PT WAS Verified 01/03/22 13:02 ADDICTED TO OPIATES AND HAS BEEN CLEAN Review of Systems Review of Systems: CONSTITUTIONAL: Denies fever, chills, or sweats. EYES: Denies visual changes, redness, or discharge. ENT: Denies rhinorrhea, congestion, sore throat, or otalgia. CARDIOVASCULAR: Denies chest pain, palpitations, or edema. RESPIRATORY: Denies cough or dyspnea. GASTROINTESTINAL: Nausea vomiting, denies any diarrhea, see HPI GENITOURINARY: Denies dysuria or hematuria. SKIN: Denies rash or itching. MUSCULOSKELETAL: Denies back pain, joint pain, or myalgia. NEUROLOGIC: Denies headache, numbness, or weakness. [facility] Past Medical History Medical History (Updated 06/18/22 @ 10:16 by Andrew Dinero MD) Hypercholesterolemia Marijuana smoker Type 2 diabetes mellitus Surgical History Surgical History (Updated 01/01/22 @ 22:49 by Angeli Kent PA-C) No history of previous surgery Family History Family History Father Diabetes mellitus Congestive heart failure Mother Rheumatoid arthritis Thyroid disease Sibling Diabetes mellitus Social History Social History (Updated 01/01/22 @ 22:51 by Angeli Kent PA-C) Social History: Surrogate decision maker: Khloe Mxawell, sister. Code status: Full code. Smoking status: Former smoker Additional smoking assessment comments: The patient smoked remotely as a teen, quit in his 20s. Alcohol intake: never Alcohol use details: Very rare alcohol use, socially and in moderation. Substance use: never Additional living arrangements comments: The patient lives in [place]. 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 Spiritual care concerns: No Exam Narrative: APPEARANCE: Well appearing, no pain, no distress, well-nourished. HEAD: normocephalic, atraumatic. EYES: PERRLA/EOMI, conjunctivae clear. NOSE: Normal no drainage NECK: Supple. No adenopathy, no masses. RESPIRATORY: Airway patent, respirations nonlabored. Clear to auscultation bilaterally, no rales, rhonchi, wheezing. CARDIOVASCULAR: Regular rate and rhythm without murmurs rubs or gallops. ABDOMINAL: Soft, nondistended, normal bowel sounds, minimal upper abdominal tenderness. MUSCULOSKELETAL:
[2022-06-18 08:43] LABS: Alanine Aminotransferase 20 U/L (6-50); Albumin Level 4.9 g/dL (3.5-5.1); Alkaline Phosphatase 73 U/L (38-126); Anion Gap 15 mmol/L (8-16); Aspartate Amino Transferase 21 U/L (17-59); Bilirubin,Total 1.2 mg/dL (0.2-1.3); Blood Urea Nitrogen 21 mg/dL (9-20); Calcium 10.1 mg/dL (8.4-10.2); Carbon Dioxide 25 mmol/L (22-30); Chloride 95 mmol/L (98-107); Estimated CRCL calculation 105 ml/min; Estimated Glomerular Filt Rate > 60; Glucose 264 mg/dL (65-110); Lipase 42 U/L (23-300); Potassium 3.7 mmol/L (3.4-5.0); Sodium 135 mmol/L (137-145)
[2022-06-18 08:47] LABS: Add Urine Microscopic? YES
[2022-06-18 08:48] LABS: Amorphous Sediment Urine Few; WBC Urine 0-3 /hpf
[2022-06-18 09:03] LABS: Basophils Percent Auto 0.1 % (0.2-1.2); Hematocrit 43.5 % (42.0-52.0); Hemoglobin 15.2 g/dL (14.0-18.0); Immature Granulocyte Absolute 0.02 K/mm3 (0.00-0.031); Immature Granulocyte Percent A 0.2 % (0-0.5); Lymphocytes Absolute Auto 0.79 K/mm3 (0.9-3.2); Lymphocytes Percent Auto 8.5 % (18.3-44.2); Mean Corpuscular HGB Conc 34.9 g/dl (32-36); Mean Corpuscular Hemoglobin 29.4 pg (26-34); Mean Corpuscular Volume 84.1 fl (80-100); Monocytes Absolute Auto 0.7 K/mm3 (0.1-0.6); Monocytes Percent Auto 7.1 % (2.6-8.5); Neutrophils Absolute Auto 7.8 K/mm3 (1.3-6.7); Neutrophils Percent Auto 84.1 % (45.5-73.1); Platelet Count Result 187 k/mm3 (150-375); Red Blood Count 5.17 M/mm3 (4.6-6.20); Red Cell Distribution Width 13.2 % (11.5-14.5); White Blood Count 9.2 K/mm3 (4.5-10.0)
[2022-06-18] MEDS: METOCLOPRAMIDE HCL INJ 10 MG/2 ML VIAL IV PUSH ×2 (09:12→11:45)
[2022-06-18] MEDS: SODIUM CHLORIDE 0.9% IV 1,000 ML 999 ML IV CONT ×2 (09:13→11:45)
[2022-06-18] MEDS: PANTOPRAZOLE SODIUM IV 40 MG VIAL IV PUSH (09:13)
[2022-06-18] MEDS: diphenhydrAMINE HCl INJ 50 MG/ML VIAL 25 MG IV PUSH (11:45)
== END 2022-06-18 13:21 | disposition home or self-care (01) ==
PROVIDERS: Emergency Provider Emergency Medicine; PCP Emergency Medicine
DX: E11.43 Type 2 diabetes mellitus with diabetic autonomic (poly)neuropathy (principal); K31.84 Gastroparesis; E78.00 Pure hypercholesterolemia, unspecified; Z87.891 Personal history of nicotine dependence; Z79.4 Long term (current) use of insulin
CPT/HCPCS: 36415; 80053; 81001; 83690; 85025; 96361; 96374; 96375; 99284; C9113; J1200; J2765; J7030

== ENCOUNTER 2023-04-16 14:34 | Emergency (ER) | payer SELFPAY ==
[2023-04-16 14:56] VITALS: BP 143/77; PULSE 91; RESP 16; TEMP 36.4; O2SAT 98
[2023-04-16 16:16] LABS: Basophils Percent Auto 0.3 % (0.2-1.2); Hematocrit 46.9 % (42.0-52.0); Hemoglobin 15.6 g/dL (14.0-18.0); Immature Granulocyte Absolute 0.06 K/mm3 (0.00-0.031); Immature Granulocyte Percent A 0.6 % (0-0.5); Lymphocytes Absolute Auto 0.49 K/mm3 (0.9-3.2); Lymphocytes Percent Auto 4.9 % (18.3-44.2); Mean Corpuscular HGB Conc 33.3 g/dl (32-36); Mean Corpuscular Hemoglobin 28.5 pg (26-34); Mean Corpuscular Volume 85.6 fl (80-100); Mean Platelet Volume 10.6 fl (7.4-10.4); Monocytes Absolute Auto 0.3 K/mm3 (0.1-0.6); Monocytes Percent Auto 2.7 % (2.6-8.5); Neutrophils Absolute Auto 9.1 K/mm3 (1.3-6.7); Neutrophils Percent Auto 91.5 % (45.5-73.1); Platelet Count Result 229 k/mm3 (150-375); Red Blood Count 5.48 M/mm3 (4.6-6.20); Red Cell Distribution Width 13.6 % (11.5-14.5)
[2023-04-16 16:25] LABS: Alanine Aminotransferase 60 U/L (6-50); Albumin Level 4.9 g/dL (3.5-5.1); Alkaline Phosphatase 101 U/L (38-126); Anion Gap 14 mmol/L (8-16); Aspartate Amino Transferase 42 U/L (17-59); Bilirubin,Total 0.8 mg/dL (0.2-1.3); Blood Urea Nitrogen 19 mg/dL (9-20); Carbon Dioxide 28 mmol/L (22-30); Chloride 98 mmol/L (98-107); Estimated CRCL calculation 74 ml/min; Estimated Glomerular Filt Rate > 60; Glucose 371 mg/dL (65-110); Lipase 47 U/L (23-300); Potassium 4.8 mmol/L (3.4-5.0); Sodium 140 mmol/L (137-145)
[2023-04-16] MEDS: LACTATED RINGERS 1,000 ML 999 ML IV CONT ×2 (17:17→18:30)
[2023-04-16] MEDS: PANTOPRAZOLE SODIUM IV 40 MG VIAL IV PUSH (17:17)
[2023-04-16] MEDS: METOCLOPRAMIDE HCL INJ 10 MG/2 ML VIAL IV PUSH (17:17)
[2023-04-16 17:18] LABS: Fractional Inspired Oxygen 21 %; HCO3 VBG 22.6 mEq/l (24.0-30.0); PCO2 VBG 33.6 mmHg (42.0-48.0); PO2 VBG 87.1 mmHg (35.0-45.0)
[2023-04-16 17:19] LABS: Device ROOM AIR
[2023-04-16 17:34] LABS: pH VBG 7.445 (7.300-7.400)
--- NOTE | 2023-04-16 18:00 | PC.NURSE ---
Walked into room, found pt attempting to make himself vomit in toilet.
[2023-04-16 18:41] VITALS: BP 138/87; PULSE 93
[2023-04-16 18:42] VITALS: BP 154/79; PULSE 87
[2023-04-16 18:43] VITALS: BP 160/101; PULSE 102
[2023-04-16 18:45] LABS: Appearance Urine Clear (Clear); Bacteria Urine None Seen /hpf; Bilirubin Urine Negative (Negative); Blood Urine Negative (Negative); Color Urine Yellow (Yellow); Glucose Urine UA 3+ mg/dL (Negative); Ketones Urine 3+ mg/dL (Negative); Leukocyte Esterase Ur Negative LEU/UL (Negative); Nitrate Urine Negative (Negative); Non Pathogenic Casts 0-2; Protein Urine Trace mg/dL (Negative); RBC Urine 0-2 /hpf (0-2); Squamous Epithelial Cell Urine None seen /hpf (Few); WBC Urine 0-5 /hpf; pH Urine 6.5 (5.0-9.0)
[2023-04-16 18:50] LABS: Specific Grav Ur 1.038 (1.001-1.035)
[2023-04-16 18:51] LABS: Add Urine Microscopic? YES
[2023-04-16] MEDS: ONDANSETRON INJ 4 MG/2 ML VIAL IV PUSH (18:56)
--- NOTE | 2023-04-16 19:07 | ED.NAVMDI ---
HPI - Nausea/Vomiting/Diarrhea General Chief complaint: Nausea/Vomiting/Diarrhea Stated complaint: N/V x2 days- diabetic Time Seen by Provider: 04/16/23 16:53 Source: patient, RN notes reviewed and old records reviewed Mode of arrival: ambulatory Limitations: no limitations History of Present Illness HPI Narrative: This is a 47 year old male with history of IDDM and gastroparesis who presents for evaluation of nausea and vomiting. Patient states he has been having nonbilious, non bloody vomiting for 2 days. He denies abdominal pain, diarrhea, fever, chills. He denies any other symptoms. He states this is similar to other episodes of gastroparesis. Related Data Home Medications Medication Instructions Recorded Confirmed lisinopril 2.5 mg tablet 2.5 mg PO DAILY 01/01/22 06/23/22 pantoprazole 40 mg tablet,delayed 40 mg PO DAILY 01/01/22 06/23/22 release rosuvastatin 10 mg tablet 10 mg PO DAILY 01/01/22 06/23/22 Allergies Allergy/AdvReac Type Severity Reaction Status Date / Time Opioids - Morphine Analogues Allergy Unknown PT WAS Verified 04/16/23 14:56 ADDICTED TO OPIATES AND HAS BEEN CLEAN Opioids-Methadone and Related Allergy Unknown PT WAS Verified 04/16/23 14:56 ADDICTED TO OPIATES AND HAS BEEN CLEAN Review of Systems Constitutional: Constitutional: Denies weakness Cardiovascular: Cardiovascular: Denies syncope, Denies rapid heart rate, Denies irregular heart rhythm, Denies leg edema and Denies dyspnea Respiratory: Respiratory: Denies chest congestion, Denies hemoptysis, Denies excessive phlegm production and Denies dyspnea Gastrointestinal: Gastrointestinal: Denies abdominal pain, Denies hematochezia, Denies diarrhea, Reports nausea and Reports vomiting Genitourinary: Genitourinary: Denies hematuria, Denies dysuria, Denies penile discharge and Denies testicular pain Musculoskeletal: Musculoskeletal: Denies joint swelling, Denies loss of height and Denies muscle weakness Neurologic: Denies syncope, Denies focal weakness and Denies weakness PMFSH Past Medical History Medical History Hypercholesterolemia Marijuana smoker Type 2 diabetes mellitus Surgical History Surgical History No history of previous surgery Family History Family History Father Diabetes mellitus Congestive heart failure Mother Rheumatoid arthritis Thyroid disease Sibling Diabetes mellitus Social History Social History Social History: Surrogate decision maker: Khloe Maxwell, sister. Code status: Full code. Smoking status: Former smoker Additional smoking assessment comments: The patient smoked remotely as a teen, quit in his 20s. Alcohol intake: never Alcohol use details: Very rare alcohol use, socially and in moderation. Substance use: never Additional living arrangements comments: The patient lives in [place]. 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 Spiritual care concerns: No Exam Const: General: no acute distress and alert Nutritional Appearance: well nourished and obese Orientation/consciousness: patient oriented x3 HENMT: Head: normal to inspection Mouth: Yes Normal oral and palatal mucosa present, Yes lip normal and Yes moist mucous membranes Throat: posterior oropharynx normal Eyes: EOM: EOMs intact bilaterally Chest: Chest palpation & inspection: normal inspection of the chest Resp: Effort & Inspection: normal respiratory effort Auscultation: clear to auscultation bilaterally Cardio: Rate: regular rate Rhythm: regular rhythm Heart sounds: no murmurs GI: GI Palp: Yes Soft to palpation, No Tenderness to palpation present (GI), No Guarding due to palpation present (GI) and No Rigid due t
[2023-04-16 19:08] VITALS: BP 169/88; PULSE 54; RESP 15; TEMP 37.3; O2SAT 98
[2023-04-16 20:26] VITALS: BP 141/87; PULSE 80; RESP 16; O2SAT 98
== END 2023-04-16 20:26 | disposition home or self-care (01) ==
PROVIDERS: Emergency Medicine; Emergency Provider General Practice; PCP Emergency Medicine
DX: E11.65 Type 2 diabetes mellitus with hyperglycemia (principal); R11.2 Nausea with vomiting, unspecified; E11.43 Type 2 diabetes mellitus with diabetic autonomic (poly)neuropathy; K31.84 Gastroparesis; E78.00 Pure hypercholesterolemia, unspecified; Z87.891 Personal history of nicotine dependence; Z79.4 Long term (current) use of insulin
CPT/HCPCS: 36415; 80053; 81001; 82803; 83690; 85025; 96361; 96374; 96375; 99284; C9113; J2405; J2765; J7120